=== PATIENT | male | born 1955 | race Two or more races ===

== ENCOUNTER 2016-07-16 10:36 | Emergency (ER) | payer OTHER ==
[2016-07-16 11:40] VITALS: PULSE 76; RESP 18; TEMP 99.7; O2SAT 94
[2016-07-16 12:33] VITALS: BP 153/87
--- NOTE | 2016-07-16 12:35 | UCPHY ---
H & P Time Seen by Provider: 07/16/16 11:39 Patient Type: New HPI/ROS: This patient reports a cough for 3 days associated with fevers. He has also had some myalgias and fatigue. He reports the cough is associated with wheeze at times. He notices when he lies flat there is a noisy sound and his lungs. He wants to rule out pneumonia. ROS: No other constitutional symptoms. HEENT: Mild nasal congestion. Pulmonary: No pleuritic pain. No respiratory distress cardiovascular: No lightheadedness. No leg swelling. GI: No vomiting. 7 point ROS is otherwise negative. Past Medical/Surgical History: Otherwise healthy Smoking Status: Never smoked Physical Exam: General Appearance: Alert, no distress. Eyes: Pupils equal and round no pallor or injection. ENT, Mouth: Mucous membranes moist. Respiratory: Mild rhonchi bilaterally. No rales. No respiratory distress. Cardiovascular: Regular rate and rhythm. No murmur gallop rub. No peripheral edema. Gastrointestinal: Abdomen is soft and nontender, no masses, bowel sounds normal. Neurological: Alert with no focal deficits. Skin: Warm and dry, no rashes. Musculoskeletal: Neck is supple nontender. Extremities are symmetrical, full range of motion. Psychiatric: Mood and affect normal DIFFERENTIAL DIAGNOSIS: After history and physical exam differential diagnosis was considered for bronchitis, pneumonia, influenza Constitutional: Initial Vital Signs Temperature (C) 37.6 C 07/16/16 11:37 Heart Rate 76 07/16/16 11:37 Respiratory Rate 18 07/16/16 11:37 Blood Pressure 168/81 H 07/16/16 11:37 O2 Sat (%) 94 07/16/16 11:37 O2 Delivery Mode Room Air Allergies/Adverse Reactions: No Known Allergies Allergy (Unverified 07/16/16 11:37) Home Medications: Medication Instructions Recorded AMITRIPTYLINE HCL [Amitriptyline 07/16/16 100 mg] Albuterol Hfa Anes Only [Proair 2 puffs IH Q4 PRN #1 mdi 07/16/16 Hfa Icu (*)] Atorvastatin Calcium [Lipitor 10 07/16/16 mg (*)] Azithromycin [Zithromax] 250 mg PO DAILY #6 tab 07/16/16 MDM/Departure - MDM Diagnostics: Chest x-ray: Airway disease. Otherwise negative ED Course/Re-evaluation: I counseled the patient regarding bronchitis. His chest x-ray rules out pneumonia. Influenza is negative. Given his fevers number acute findings will cover him with Zithromax. - Depart Disposition: Home, Routine, Self-Care Clinical Impression: Acute bronchitis Qualifiers: Bronchitis organism: unspecified organism Qualified Code(s): J20.9 - Acute bronchitis, unspecified Condition: Good Instructions: Acute Bronchitis (ED) Additional Instructions: Diagnosis: Acute bronchitis Plan: Humidifier Albuterol inhaler with spacer for cough, wheeze or shortness of breath Zithromax antibiotic Ibuprofen or Tylenol for fevers. Return for any significant worsening despite the treatment plan Prescriptions: Albuterol Hfa Anes Only [Proair Hfa Icu (*)] 2 puffs IH Q4 PRN #1 mdi PRN Reason: Wheezing Azithromycin [Zithromax] 250 mg PO DAILY #6 tab Referrals: GLADIS GOMEZ [Primary Care Provider] - As per Instructions - PQRS PQRS Measurement: NA
== END 2016-07-16 12:46 | disposition home or self-care (01) ==
LOC: CED 10:36
DX: J20.9 Acute bronchitis, unspecified (principal)
CPT/HCPCS: 71020-PO; 87400-PO; G0463-PO